=== PATIENT | female | born 1980 | race Caucasian/White ===

== ENCOUNTER 2017-11-02 16:38 | Emergency (ER) | payer SELFPAY | END 2017-11-02 17:44 | disposition home or self-care (01) | LOC: ERS 16:38 | DX: J20.9 Acute bronchitis, unspecified (principal); F41.9 Anxiety disorder, unspecified; F17.210 Nicotine dependence, cigarettes, uncomplicated | CPT/HCPCS: 87081; 87430; 87804; 99406 ==

== ENCOUNTER 2018-12-09 16:09 | Outpatient (CLI) | payer MEDICAID ==
--- NOTE | 2018-12-09 16:47 | ULT ---
Pelvic sonogram transabdominal imaging with duplex evaluation HISTORY: Unable to find IUD string. FINDINGS: Urinary bladder is unremarkable. Uterus has a heterogeneous echotexture and is 8.6 cm. Echo genic bar within the endometrial cavity predominantly obscures the endometrial stripe. It is consistent with an intrauterine contraceptive device. No fluid evident. No free fluid in pelvis. Right ovary is 2.7 cm. Normal appearance with good color and spectral Dopple r flow. Left ovary not visualized. No adnexal masses are apparent. IMPRESSION: Intrauterine contraceptive device documented within the endometrial cavity. No significant abnormalities are demonstrated.
== END 2018-12-09 16:10 | disposition home or self-care (01) ==
LOC: BICULT 16:09
PROVIDERS: ATTEND Advanced Practice Midwife
DX: T83.9XXA Unspecified complication of genitourinary prosthetic device, implant and graft, initial encounter (principal)
CPT/HCPCS: 76856; 76857; 93976

== ENCOUNTER 2018-12-31 18:58 | Emergency (ER) | payer MEDICAID, SELFPAY ==
[2018-12-31 19:35] LABS: Bilirubin Negative (Negative); Blood, Urine Negative (Negative); Clarity CLEAR (Clear); Glucose, Urine (Dipstick) Negative (Negative); Leukocyte Negative (Negative); Nitrite Negative (Negative); Protein, Urine (Dipstick) Negative (Neg-Trace); Specific Gravity, Urine 1.011 (1.002-1.036); Urobilinogen 0.2 mg/dL (0.2-1.0); pH, Urine 7.5 (5.0-9.0)
[2018-12-31 19:43] LABS: Pregnancy Test - Urine (BHCG) Negative (Negative); Pregu Control Background? CLEAR/WHITE (CLR/WHITE); Pregu Control Bar Appear? YES (CONTROL BAR); Specific Gravity 1.011 (1.002-1.036)
[2018-12-31 20:08] LABS: #Basophils 0.1 thou/uL (0.0-0.2); #Eosinphils 0.2 thou/uL (0.0-0.7); #Lymphocytes 3.7 thou/uL (1.20-3.40); #Monocytes 0.6 thou/uL (0.11-0.59); #Neutrophils 4.6 thou/uL (1.40-6.50); %Basophils 1.3 % (0.0-1.0); %Eosinophils 2.1 % (0.0-10.0); %Lymphocytes 39.7 % (21.0-51.0); %Monocytes 6.9 % (0.0-10.0); %Neutrophils 49.9 % (42.0-75.0); Hemoglobin 13.3 g/dL (12.0-16.0); Mean Corpuscular HGB CONC 32.8 g/dL (32.0-36.0); Mean Corpuscular Hemoglobin 31.2 pg (27.0-31.0); Mean Corpuscular Volume 95.1 fL (78.0-98.0); Platelet Count 256 thou/uL (130-400); Red Blood Cell (RBC) Count 4.27 mill/uL (4.20-5.40); White Blood Cell (WBC) Count 9.2 thou/uL (4.8-10.8)
[2018-12-31 20:30] LABS: ALT (SGPT) 54 U/L (8-55); AST (SGOT) 29 U/L (5-34); Albumin 4.6 g/dL (3.5-5.0); Alkaline Phosphatase 44 U/L (40-150); Anion Gap 11 mmol/L (10-20); BUN (Urea Nitrogen) 12 mg/dL (7.0-18.7); Bilirubin, Total 0.2 mg/dL (0.2-1.2); Calc. Creatinine Clearance 0 mL/min (70-130); Calcium 10.1 mg/dL (7.8-10.44); Carbon Dioxide 26 mmol/L (22-29); Chloride 105 mmol/L (98-107); Estimated GFR-MDRD 82; Glucose 99 mg/dL (70-105); Lipase 22 U/L (8-78); Potassium 4.2 mmol/L (3.5-5.1); Protein, Total 7.6 g/dL (6.0-8.3); Sodium 138 mmol/L (136-145)
== END 2018-12-31 20:40 | disposition home or self-care (01) ==
LOC: ERS 18:58
DX: R11.2 Nausea with vomiting, unspecified (principal); F41.9 Anxiety disorder, unspecified; Z87.891 Personal history of nicotine dependence; Z71.6 Tobacco abuse counseling
CPT/HCPCS: 36415; 80053; 81003; 81025; 83690; 85025; 99406